=== PATIENT | male | born 1945 | race Caucasian/White ===

== ENCOUNTER 2016-11-13 10:59 | Outpatient (CLI) ==
[2016-11-13 11:18] VITALS: BMI 17.9
== END 2016-11-13 11:00 ==
LOC: AMBL 10:59
PROVIDERS: ATTEND Emergency Medicine
DX: R25.8 Other abnormal involuntary movements (principal); R53.1 Weakness; F41.9 Anxiety disorder, unspecified; R40.4 Transient alteration of awareness; I10 Essential (primary) hypertension; J44.9 Chronic obstructive pulmonary disease, unspecified

== ENCOUNTER 2016-11-13 11:07 | Emergency (ER) ==
[2016-11-13 11:18] VITALS: BP 130/75; TEMP 98.8; BMI 17.9
--- NOTE | 2016-11-13 11:27 | ED.PDOC ---
General ED Provider: Dr. GERARD CABALLERO JR Chief Complaint: Non-specific Complaint Stated Complaint: "SHAKINESS" ANXIETY DAYS...TOOK XANAX ONLY GET WORSE. CHRONIC BACK PAIN...HAVING TROUBLE REMEMBERING THIS MORNING[End]98.8 86 20 96% 130/75 7/10 SHAKING ALL OVER, HAD A SIMILAR EPISODE PAST; XANAX WITHDRAWAL. TOLD EMS HAD HAD XANAX, NOW NOT ; CANNOT FIND HIS XANAX; HYDROCODONE & HYDROMORHONE PER PRESCRIPTION-. --PER [facility];ATARAX 2 NARCAN 4 MIRTAZEPINE(Remeron ) 15 PERCOCET 7.5 DULAUDUD 4 TID ZESTORETIC 20-12.5 XANAX Time Seen by Physician: 11:26 Mode of Arrival: Ambulance Information Source: Patient Exam Limitations: No limitations Primary Care Provider: [facility] Documentation Reviewed and Agree: No Review of Systems - Review Of Systems Constitutional: Reports: Malaise, Weakness Eyes: Reports: No symptoms Ears, Nose, Mouth, Throat: Reports: No symptoms Respiratory: Reports: Cough Cardiac: Reports: No symptoms GI: Reports: No symptoms : Reports: No symptoms Musculoskeletal: Reports: No symptoms Skin: Reports: No symptoms Neurological: Reports: Anxiety, Other (SHAKING) Endocrine: Reports: No symptoms Hematologic/Lymphatic: Reports: No symptoms All Other Systems: Other Past Medical History - Past Medical History Endocrine: Reports: None Cardiovascular: Reports: None Respiratory: Reports: None Hematological: Reports: None Gastrointestinal: Reports: None Genitourinary: Reports: None Neuro/Psych: Reports: None, Anxiety Musculoskeletal: Reports: Arthritis Cancer: Reports: Other (1825 patien notes prostate cancer- one side of prostate removed no chem o no radiation no known metastasis but repeat PSA went from 7 to 14, patietn unsure what this means, still not oriented- history deemed questionable ) Other Pertinent Past Medical History: smoker - Surgical History General Surgical History: Reports: Orthopedic (left knee surgery), Other ( surgery on colllapsed lungs due to shrapnel ) - Family History Family History: Reports: Unknown - Social History Smoking Status: Current every day smoker Hx Substance Use: No Alcohol Screening: None - Immunizations Tetanus Shot up to Date: Yes Physical Exam - Physical Exam Appearance: Well-appearing, Thin Ill-appearing: Mild Pain Distress: Mild Eyes: KUSHAL ENT: Ears normal, TMs Occluded (PARTIALLY WITH CERUMEN) Neck: Supple Respiratory: Airway patent, Breath sounds equal, Rhonchi Cardiovascular: RRR, Pulses normal, No rub, No murmur GI/: Soft, Nontender, No masses, Bowel sounds normal, No Organomegaly Musculoskeletal: Normal strength, ROM intact, No edema, No calf tenderness Skin: Warm, Dry, Normal color Neurological: Sensation intact, Motor intact, Reflexes intact, Cranial nerves intact, Alert, Oriented Psychiatric: Anxious Interpretation - EKG Interpretation Time of EKG #1: 13:00 Rate: Normal Rhythm: Sinus Ectopy: None [place]: NL ST Segment: Normal Physician Notification - Case Discussed Physician Notified: [facility]R [place]- WILL ACCEPT IF CT HEAD IS NEGATIVE OBTAIN CT Time of Notification: 16:43 (fax [phone]) Critical Care Note - Critical Care Note Total Time (mins): 0 Course - Course Hematology/Chemistry: 11/13/16 11:37 11/13/16 11:37 Orders, Labs, Meds: Lab Review 11/13/16 11/13/16 11:37 15:40 WBC 7.83 RBC 4.76 Hgb 14.7 Hct 43.1 MCV 90.5 MCH 30.9 MCHC 34.1 RDW Coeff of Kelly 13.7 Plt Count 323 Immature Gran % (Auto) 0.3 Neut % (Auto) 77.3 Lymph % (Auto) 13.5 Bradford % (Auto) 8.3 Eos % (Auto) 0.5 Baso % (Auto) 0.1 Immature Gran # (Auto) 0.0 Neut # 6.1 Lymph # 1.1 Bradford # 0.7 Eos # 0.0 Baso # 0.0 Sodium 147 H Potassium 3.7 Chloride 114 H Carbon Dioxide 23 Anion Gap 13.7 BUN 32 H Creatinine 1.21 H Estimated GFR (MDRD) 59.00 BUN/Creatinine Ratio 26.44 Glucose 123 H Calcium 9.7 Total Bilirubin 0.62 AST 52 H ALT 34 Alkaline Phosphatase 51 L Total Creatine Kinase 188 CK-MB (CK-2) 1.5 CK-MB (CK-2) % 0.06107 Troponin I < 0.0100 B-Natriuretic Peptide 21 Total Protein 7.8 Albumin 3.5 Globulin 4.3 Albumin/Globulin Ratio 0.81 TSH 0.276 L Urine Color Yellow Urine Clarity Clear Urine pH 5.5 Ur Specific Boone 1.010 Urine Protein Negative Urine Glucose (UA) Negative Urine Ketones Trace Urine Blood Negative Urine Nitrite Negative Urine Bilirubin Negative Urine Urobilinogen 1.0 Ur Leukocyte Esterase Negative Urine Opiates Screen Positive Ur Oxycodone Screen Negative Urine Methadone Screen Negative Ur Propoxyphene Screen Negative Ur Barbiturates Screen Negative U Tricyclic Antidepress Negative Ur Phencyclidine Scrn Negative Ur Amphetamine Screen Negative U Methamphetamines Scrn Negative U Benzodiazepines Scrn Positive Urine Cocaine Screen Negative U Cannabinoids Screen Negative Orders Category Date Time Status EKG-(ED ONLY) Stat CARDIO 11/13/16 11:26 Completed ACCUCHECK (ED) [ED ACCUCHECK ASSESSMENT] .ONCE EMERGENCY 11/13/16 11:42 Active Bladder Scan [ED BLADDER SCAN] .ONCE EMERGENCY 11/13/16 13:45 Active Catheter [ED CATHETER INSERTION AND CARE] .ONCE EMERGENCY 11/13/16 15:34 Active ED REGISTER IN CHANCERY APPLIED ONCE EMERGENCY 11/13/16 11:26 Active ED IV/MEDIPORT/POWERPORT .ONCE EMERGENCY 11/13/16 11:43 Active B-TYPE NATRIURETIC PEPTIDE Stat LAB 11/13/16 11:37 Completed CBC W/ AUTO DIFF Stat LAB 11/13/16 11:37 Completed COMPREHENSIVE METABOLIC PANEL Stat LAB 11/13/16 11:37 Completed CREATINE KINASE Stat LAB 11/13/16 11:37 Completed DRUG SCREEN, URINE, RAPID Stat LAB 11/13/16 15:40 Completed THYROID STIMULATING HORMONE Stat LAB 11/13/16 11:37 Completed TROPONIN I Stat LAB 11/13/16 11:37 Completed URINALYSIS C & S IF INDICATED Stat LAB 11/13/16 15:40 Completed 0.9 % Sodium Chloride [Saline Flush] MEDS 11/13/16 11:43 Active 1 syr IVF PRN PRN Levothyroxine Sodium [Synthroid] MEDS 11/13/16 13:19 Discontinued 88 mcg PO ONCE STA Lidocaine HCl [Uro-Jet] MEDS 11/13/16 16:47 Discontinued 10 ml MUCOUSMEMB .STK-MED ONE Lidocaine HCl [Uro-Jet] MEDS 11/13/16 15:34 Discontinued 10 ml [email or web address] ONCE STA Sodium Chloride 0.9% [Sodium Chloride] 1,000 ml MEDS 11/13/16 12:00 Active Folic Acid 1 mg Mvi, Adult No.1 with Vit K [Infuvite Adult] 10 ml Vitamin B-1 Inj [Thiamine] 100 mg IV 83 mls/hr CHEST, 2 VIEWS PA & LAT Stat RADS 11/13/16 11:[address] HEAD W/O CONTRAST Stat RADS 11/13/16 17:09 Completed Medications Generic Name Dose Route Start Last Admin Trade Name Freq PRN Reason Stop Dose Admin Folic Acid 1 mg/ Multivitamins 1,011.2 mls @ 83 mls/hr 11/13/16 12:00 12:15 /Minerals 10 ml/ Thiamine HCl IV 83 mls/hr 100 mg/ Sodium Chloride .[id number] LOREE Administration Sodium Chloride 1 syr 11/13/16 11:43 11/13/16 12:00 Saline Flush IVF 1 syr PRN PRN Administration To flush IV Discontinued Medications Generic Name Dose Route Start Last Admin Trade Name Freq PRN Reason Stop Dose Admin Levothyroxine Sodium 88 mcg 11/13/16 13:19 11/13/16 13:51 Synthroid PO 11/13/16 13:20 88 mcg ONCE STA Administration Lidocaine HCl 10 ml 11/13/16 15:34 11/13/16 15:30 Uro-Jet MUCOUSMEMB 11/13/16 15:35 10 ml ONCE STA Administration Vital Signs: Temp Pulse Resp BP Pulse Ox 11/13/16 11:08 98.8 F 86 20 130/75 96 Departure - Departure Time of Disposition: 18:25 Disposition: TSF SHORT-TRM HOSP Discharge Problem: Acute delirium, Dehydration, Hyperthyroidism Condition: Stable Pt referred to PMD for follow-up: Yes ([facility]ER[facility]) Allergies/Adverse Reactions: Allergies No Known Allergies Allergy (Unverified 12/30/14 14:44) Home Medications: Ambulatory Orders Alprazolam [Xanax] 2 mg PO PRN PRN 12/30/14 Oxycodone HCl/Acetaminophen [Oxycodon-Acetaminophen 7.5-325] 7.5 tab PO PRN PRN 12/30/14 Lisinopril/Hydrochlorothiazide [Zestoretic 20-12.5 mg Tablet] 1 each PO DAILY Hydromorphone HCl [Dilaudid] 4 mg PO TID 11/13/16 Hydroxyzine HCl 2 tab PO TID PRN 11/13/16 Mirtazapine 15 mg PO BEDTIME 11/13/16 Naloxone HCl [Narcan] 4 mg NS DIRECTED PRN 11/13/16
[2016-11-13 11:39] LABS: BASOPHILS % (AUTO) 0.1 % (0.0-3.0); EOSINOPHILS % (AUTO) 0.5 % (0.0-7.0); HEMATOCRIT 43.1 % (42.0-52.0); HEMOGLOBIN 14.7 g/dl (14.0-18.0); IMMATURE GRANULOCYTE % (AUTO) 0.3 % (0.0-5.0); LYMPHOCYTES # (AUTO) 1.1 K/uL (0.60-3.4); LYMPHOCYTES % (AUTO) 13.5 (10.0-50.0); MEAN CORPUSCULAR HEMOGLOBIN 30.9 pg (27.0-31.0); MEAN CORPUSCULAR HGB CONC 34.1 (31.8-35.4); MEAN CORPUSCULAR VOLUME 90.5 fl (80.0-94.0); MONOCYTES # (AUTO) 0.7 K/uL (0.4-2.0); MONOCYTES % (AUTO) 8.3 (0-10); NEUTROPHILS # (AUTO) 6.1 K/ul (2.0-6.9); NEUTROPHILS % (AUTO) 77.3; PLATELET COUNT 323 10^3/uL (140-440); RED BLOOD COUNT 4.76 10^6/ul (4.70-6.10); WHITE BLOOD COUNT 7.83 K/ul (4.2-10.2)
--- NOTE | 2016-11-13 11:55 | DI ---
Exam: Chest two-view History: Cough FINDINGS: Normal cardiomediastinal contours. Normal pulmonary vasculature. The lungs are hyperexp anded. Bilateral chain sutures within the lungs. No infiltrative opacities. No acute chest wall a bnormality. Atherosclerotic calcification of the aorta. Impression: Emphysematous change. No acute cardiopulmonary disease.
[2016-11-13] MEDS ORDERED: FOLIC ACID 1 MG, INFUVITE ADULT 10 ML, THIAMINE 100 MG in SODIUM CHLORIDE 1,000 ML IV SCH (12:00)
[2016-11-13 12:18] LABS: ALANINE AMINOTRANSFERASE 34 U/L (12-78); ALBUMIN 3.5 g/dL (3.4-5.0); ALBUMIN/GLOBULIN RATIO 0.81; ALKALINE PHOSPHATASE 51 U/L (56-119); ANION GAP 13.7; ASPARTATE AMINO TRANSFERASE 52 U/L (15-37); BILIRUBIN,TOTAL 0.62 mg/dL (0.00-1.20); BLOOD UREA NITROGEN 32 mg/dL (7-18); BUN/CREATININE RATIO 26.44; CALCIUM 9.7 mg/dL (8.2-10.2); CARBON DIOXIDE 23 mmol/L (23-31); CHLORIDE 114 mmol/L (98-107); CREATINE KINASE 188 U/L; CREATININE 1.21 mg/dL (0.60-1.10); GLUCOSE 123 mg/dL (82-115); POTASSIUM 3.7 mmol/L (3.5-5.1); SODIUM 147 mmol/L (136-145); TOTAL PROTEIN 7.8 g/dL (5.8-8.1)
[2016-11-13 12:28] LABS: CREATINE KINASE MB 1.5 ng/ml (0.0-3.6)
[2016-11-13] MEDS ORDERED: SYNTHROID PO STA (13:19)
[2016-11-13] MEDS ORDERED: URO-JET MUCOUSMEMB STA (15:34)
[2016-11-13 15:55] LABS: ADD URINE MICROSCOPIC NO; BILIRUBIN,URINE Negative (NEGATIVE); KETONES,URINE Trace (NEGATIVE); LEUKOCYTE ESTERASE ,URINE Negative (NEGATIVE); NITRITE,URINE Negative (NEGATIVE); PH,URINE 5.5 (5-9); PROTEIN,URINE Negative (NEGATIVE); URINE, BLOOD Negative (NEGATIVE)
[2016-11-13 16:17] LABS: COCAIN SCREEN,URINE NEGATIVE (NEGATIVE)
[2016-11-13] MEDS ORDERED: URO-JET MUCOUSMEMB ONE (16:47)
--- NOTE | 2016-11-13 17:45 | CT ---
EXAM: CT brain without contrast HISTORY: Confusion TECHNIQUE: Multi-slice transaxial helical with coronal and sagital reformated images COMPARISON: None FINDINGS: The midline structures are central. The ventricles and sulci are slightly prominent refl ecting some atrophy. Minimal low attenuation in the periventricular white matter is nonspecific but is likely related to chronic microvascular ischemic disease. No acute intraparenchymal or extraaxia l hemorrhagic collections are detected. The calvarium is intact. The visible paranasal sinuses and mastoid air cells are clear. IMPRESSION: 1. No acute intracranial process. 2. Age related atrophy and small vessel disease.
[2016-11-13] MEDS ORDERED: XANAX PO STA (18:25)
[2016-11-13] MEDS ORDERED: XANAX ONE (18:55)
== END 2016-11-13 20:25 | disposition short-term general hospital (02) ==
LOC: ED 11:07
DX: R41.0 Disorientation, unspecified (principal); E86.0 Dehydration; E05.90 Thyrotoxicosis, unspecified without thyrotoxic crisis or storm; F41.9 Anxiety disorder, unspecified; R53.1 Weakness; F17.210 Nicotine dependence, cigarettes, uncomplicated; Z79.899 Other long term (current) drug therapy
CPT/HCPCS: 36415; 80053; 80306; 81001; 82550; 82553; 82962; 83880; 84439; 84443; 84484; 85025; 93005; 93010; 96360; 96361; 99285